=== PATIENT | male | born 1975 | race Caucasian/White ===

== ENCOUNTER 2021-06-22 21:56 | Emergency (ER) | payer SELFPAY ==
[2021-06-22] MEDS ORDERED: chlorproMAZINE 50 MG/2 ML INJ IM ONE (23:13)
--- NOTE | 2021-06-22 23:16 | Emergency Department Report ---
ED General Adult HPI - General Chief complaint: Neuro Symptoms/Deficit Stated complaint: HICCUPS FOR 4 DAYS Source: patient Mode of arrival: Ambulatory Limitations: No Limitations, Language Barrier - History of Present Illness Initial comments: Patient is a 45-year-old male with a history of hyperlipidemia who presents to the ED with complaint of acute onset persistent intractable hiccups for the last 4 days. Patient states that the symptoms started after he started taking antibiotics for suspected colitis, which she has been taking metronidazole and Bactrim DS in addition to antacids. Patient states that he has been taking these medications until about 2 days ago when he stopped because of intractable hiccups. Patient denies dizziness, syncope, fever, chills, chest pain, nausea and vomiting, headache, hemoptysis, cough, sore throat, abdominal pain or diarrhea and back pain. MD Complaint: Persistent Hiccups -: Sudden, days(s) (4) Location: chest Radiation: non-radiation Severity scale (0 -10): 0 Quality: dull Consistency: constant Improves with: none Worsens with: other (speach) Associated Symptoms: denies other symptoms. denies: confusion, chest pain, cough, diaphoresis, fever/chills, headaches, loss of appetite, malaise, rash, seizure, shortness of breath, syncope, weakness, other Treatments Prior to Arrival: none - Related Data Allergies Allergy/AdvReac Type Severity Reaction Status Date / Time No Known Allergies Allergy Unverified 06/22/21 23:08 ED Review of Systems ROS: Stated complaint: HICCUPS FOR 4 DAYS Other details as noted in HPI Constitutional: denies: chills, fever Eyes: denies: eye pain, eye discharge, vision change ENT: denies: ear pain, throat pain Respiratory: denies: cough, shortness of breath, wheezing Cardiovascular: other (Hicupps). denies: chest pain, palpitations Endocrine: no symptoms reported Gastrointestinal: denies: abdominal pain, nausea, vomiting, diarrhea Genitourinary: denies: urgency, dysuria Musculoskeletal: denies: back pain, joint swelling, arthralgia Skin: denies: rash, lesions Neurological: denies: headache, weakness, paresthesias Psychiatric: denies: anxiety, depression Hematological/Lymphatic: denies: easy bleeding, easy bruising ED Past Medical Hx - Past Medical History Additional medical history: Hyperlipidemia ED Physical Exam - General Limitations: No Limitations, Language Barrier General appearance: alert, in no apparent distress - Head Head exam: Present: atraumatic, normocephalic, normal inspection - Eye Eye exam: Present: normal appearance, PERRL, EOMI Pupils: Present: normal accommodation - ENT ENT exam: Present: normal exam, normal orophraynx, mucous membranes moist, TM's normal bilaterally, normal external ear exam - Neck Neck exam: Present: normal inspection, full ROM - Respiratory Respiratory exam: Present: normal lung sounds bilaterally. Absent: respiratory distress, wheezes, rales, rhonchi, chest wall tenderness, accessory muscle use - Cardiovascular Cardiovascular Exam: Present: regular rate, normal rhythm, normal heart sounds. Absent: systolic murmur, diastolic murmur, rubs, gallop - GI/Abdominal GI/Abdominal exam: Present: soft, normal bowel sounds. Absent: tenderness, guarding, rebound, hyperactive bowel sounds, hypoactive bowel sounds, organomegaly - Rectal Rectal exam: Present: deferred - Extremities Exam Extremities exam: Present: normal inspection, full ROM, normal capillary refill. Absent: tenderness - Back Exam Back exam: Present: normal inspection, full ROM. Absent: tenderness, CVA tenderness (R), CVA tenderness (L), muscle spasm, paraspinal tenderness, vertebral tenderness - Neurological Exam Neurological exam: Present: alert, oriented X3, CN II-XII intact, normal gait, reflexes normal - Psychiatric Psychiatric exam: Present: normal affect, normal mood - Skin Skin exam: Present: warm, dry, intact, normal color. Absent: rash ED Course Vital Signs 06/22/21 23:00 Temperature 98.5 F Pulse Rate 71 Respiratory 18 Rate Blood Pressure 113/84 O2 Sat by Pulse 99 Oximetry ED Medical Decision Making - Lab Data Result diagrams: 06/22/21 23:17 06/22/21 23:17 - Radiology Data Radiology results: report reviewed, image reviewed [facility] [address] [place] [address] XRay Report Signed Patient: LAURA DO MR#: [id number] : 1975 Acct:[id number] Age/Sex: 45 / M ADM Date: 06/22/21 Loc: ED Attending Dr: Ordering Physician: ERIK JUARES Date of Service: 06/22/21 Procedure(s): XR chest routine 2V Accession Number(s): [id number] cc: ERIK JUARES Fluoro Time In Minutes: CHEST 2 VIEWS INDICATION / CLINICAL INFORMATION: hiccups. COMPARISON: None available. FINDINGS: SUPPORT DEVICES: None. HEART / MEDIASTINUM: No significant abnormality. LUNGS / PLEURA: No significant pulmonary or pleural abnormality. No pneumothorax. BONES: No significant osseous abnormality. ADDITIONAL FINDINGS: No significant additional findings. IMPRESSION: 1. No active cardiopulmonary disease. Signer Name: Raven Frausto II, MD Signed: 06/23/2021 12:13 AM Workstation Name: [id number] Transcribed By: ALLI Dictated By: RAVEN FRAUSTO II, MD Electronically Authenticated By: RAVEN FRAUSTO II, MD Signed Date/Time: 06/23/2112 DD/ TD/TT: - Medical Decision Making This is a 45-year-old male with a history of hyperlipidemia who presents to the ED with complaint of acute onset persistent intractable hiccups for the last 4 days. Patient states that the symptoms started after he started taking antibiotics for suspected colitis, which she has been taking metronidazole and Bactrim DS in addition to antacids. Patient states that he has been taking these medications until about 2 days ago when he stopped because of intractable hiccups. In the ED, patient is alert and oriented x3 and is not in any distress. Patient is hemodynamically stable. Lab test results were revi ewed and showed BUN of 30 and AST of 44. Chest x-ray showed no acute cardiopulmonary abnormalities or pneumonitis. Patient eloped from the ED before being treated as the plan was. - Differential Diagnosis Dehydration; anxiety; he; GERD; esophagitis; esophageal spasm Critical care attestation.: If time is entered above; I have spent that time in minutes in the direct care of this critically ill patient, excluding procedure time. ED Disposition Clinical Impression: Intractable hiccups, Dehydration, Esophageal spasm Disposition: 07 LEFT AWOL/ELOPED Is pt being admited?: No Does the pt Need Aspirin: No Condition: Undetermined Instructions: Dehydration, Adult, [id number], Hiccups, Esophageal Spasm Referrals: [facility] [Provider Group] - 3-5 Days Time of Disposition: 06:49 Print Language: WELSH
[2021-06-22 23:48] LABS: Basophils % (Auto) 0.5 % (0.0-1.8); Eosinophils # (Auto) 0.3 K/mm3 (0.0-0.4); Eosinophils % (Auto) 3.6 % (0.0-4.3); Hematocrit 44.6 % (35.5-45.6); Lymphocytes # (Auto) 2.4 K/mm3 (1.2-5.4); Lymphocytes % (Auto) 27.7 % (13.4-35.0); Mean Corpuscular HGB Conc 34 % (32-34); Mean Corpuscular Volume 91 fl (84-94); Monocytes # (Auto) 0.8 K/mm3 (0.0-0.8); Monocytes % (Auto) 9.5 % (0.0-7.3); Platelet Count 351 K/mm3 (140-440); Red Blood Count 4.92 M/mm3 (3.65-5.03); Red Cell Distribution Width 13.3 % (13.2-15.2)
[2021-06-22 23:54] LABS: Alanine Aminotransferase 34 units/L (7-56); BUN/Creatinine Ratio 30; Blood Urea Nitrogen 30 mg/dL (9-20); Hemolysis Index 29
--- NOTE | 2021-06-23 00:17 | XRay Report ---
CHEST 2 VIEWS INDICATION / CLINICAL INFORMATION: hiccups. COMPARISON: None available. FINDINGS: SUPPORT DEVICES: None. HEART / MEDIASTINUM: No significant abnormality. LUNGS / PLEURA: No significant pulmonary or pleural abnormality. No pneumothorax. BONES: No significant osseous abnormality. ADDITIONAL FINDINGS: No significant additional findings. IMPRESSION: 1. No active cardiopulmonary disease. Signer Name: Clive Lovett II, MD Signed: 06/23/2021 12:13 AM Workstation Name: [id number]
[2021-06-23 00:26] LABS: Bilirubin,Urine NEG (Negative); Blood,Urine NEG (Negative); Color,Urine Straw (Yellow); Protein,Urine <15 mg/dL mg/dL (Negative); RBC,Urine < 1.0 /HPF (0.0-6.0); Urobilinogen,Urine < 2.0 mg/dL (<2.0)
[2021-06-23] MEDS ORDERED: chlorproMAZINE 50 MG/2 ML INJ IM NR (09:30)
[2021-06-23 10:50] VITALS: BP 140/80
== END 2021-06-23 14:00 | disposition home or self-care (01) ==
LOC: ED 21:56
DX: R06.6 Hiccough (principal); K22.4 Dyskinesia of esophagus
CPT/HCPCS: 36415; 71046; 80053; 81001; 85025; 96372; 99284; J3230; 99283